=== PATIENT | male | born 1945 | race Caucasian/White ===

== ENCOUNTER 2017-08-26 23:01 | Inpatient (IN) | payer OTHER, MEDICARE ==
[2017-08-26 23:21] VITALS: BMI 27.1
[2017-08-27] MEDS ORDERED: ZOFRAN INJ 4 MG VIAL IVP ONE (00:45)
[2017-08-27] MEDS ORDERED: NS 1000 ML 1,000 ML IV ONE (00:46)
[2017-08-27] MEDS ORDERED: ZOFRAN INJ 4 MG VIAL ONE (00:46)
[2017-08-27] MEDS ORDERED: NS 1000 ML 1,000 ML ONE ×2 (00:46→02:08)
--- NOTE | 2017-08-27 00:49 | DR.GENAD ---
HPI - PCP Primary Care Physician: kimi - Complaint/Symptoms Chief Complaint Doctors Comments: Patient is complaining of nausea, vomiting and diarrhea for the past two days getting worst today. States he has lost six pounds since last night. He deneis fever, chills. cold, or cough. States he had a temp of 100 yesterday and he is a patient of Dr. Mckeon and has Chrons disease. He denies hematuria or linette. states he has been having hypogastric pain with decrease appetite. States he has been eating peaches today and drinking gatoraide. Family states he has been weak but has not falling. He denies chest pain or SOB. Chief Complaint:: n/v/d Self Treatment fo Chief Complaint: PHENERGAN TAKEN ONE HOUR AGO - Nurses notes reviewed Nurses Notes Review: Yes - Source History Provided: Patient - Mode of Arrival Mode of Arrival: Ambulatory - Timing Onset of Chief Complaint: 08/24/17 Came on: Gradually - Duration Duration: Constant How lon Duration: Days - Location Location: mid abdominal pain - Severity Severity: Moderate - Modifying Factors Worsens:: nothing Improves:: nothing PMH - PMH Past Medical History: Yes Past Medical History: Hypertension Past Medical History Comment: CHRONES DISEASE Past Surgical History: Yes Surgical History: Abdominal Surgery, Appendectomy, CABG/Valve Surgery, Cholecystectomy, Tonsillectomy Past Surgical History Comment: ILLIECTOMY - Family History History of Family Medical Conditions: Yes Family Medical History: [place], Coronary Artery Disease - Social History Does patient currently use any type of tobacco product: No Have you used tobacco products in the last 12 months: No Type of Tobacco Use: None Does any household member use tobacco: No Alcohol Use: None Do you use any recreational Drugs:: No Lives With: Family Lives Where: Home - infectious screening In the last 2 months have you had wt loss of >10#?: NO Have you had fever, night sweats or hemotysis?: No Have you traveled outside the country in the last 6 months?: No Isolation: Standard ROS - Review of Systems Constitutional: No Symptoms Reported, Fever, Malaise, Weakness, Loss of Appetite. negative: See HPI, Chills, Diaphoresis, Irritable, Fatigue, Other Eyes: No Symptoms Reported. negative: See HPI, Eye Pain, Blurred Vision, Tearing, Discharge, Photophobia, Diplopia, Other ENTM: No Symptoms Reported. negative: See HPI, Ear Pain, Ear Discharge, Pulling on Ears, Hearing Loss, Nose Pain, Nose Discharge, Epistaxis, Nose Congestion, Mouth Pain, Mouth Swelling, Loose Teeth, Drooling, Throat Pain, Throat Swelling, Ear Foreign Body Respiratoy: No Symptoms Reported. negative: See HPI, Productive Cough, Non- Productive Cough, Moist Cough, Dry Cough, Hacking Cough, Barking Cough, Brassy Cough, Orthopnea, Short of Breath, Stridor, Wheezing, Hemoptysis, Other Cardiovascular: No Symptoms Reported. negative: See HPI, Chest Pain, Edema, Palpitations, Syncope, Cyanosis, Skin Mottling, Other Gastrointestinal/Abdominal: No Symptoms Reported, Abdominal Pain, Diarrhea, Nausea, Vomiting. negative: See HPI, Constipation, Food Intolerance, Other Genitourinary: No Symptoms Reported. negative: See HPI, Discharge, Dysuria, Frequency, Hematuria, Pain, Bleeding, Other Neurological: No Symptoms Reported. negative: See HPI, Anxiety, Depressed, Emotional Problems, Headache, Numbness, Paresthesia, Pre-existing Deficit, Seizure, Tingling, Tremors, Weakness, Dizziness, Problems Walking, Speech Problem, Other Musculoskeletal: No Symptoms Reported Integumentary: No Symptoms Reported. negative: See HPI, Change in Color, Change in Hair/Nails, Dryness, Lesions, Lumps, Rash, Itching, Wound, Bruises, Juandice, Other Hematologic/Lymphatic: No Symptoms Reported Endocrine: No Symptoms Reported. negative: See HPI, Excessive Sweating, Flushing, Intolerance to Cold, Intolerance to Heat, Increased Hunger, Increased Thirst, Increased Urine, Unexplained Weight Gain, Unexplained Weight Loss, Failure to Thrive, Decreased Appetite, Other Psychiatric: No Symptoms Reported. negative: See HPI, Anxiety, Depression, Hallucinations, Excessive crying, Suicidal, Other PE - Vital Signs Vitals: Temperature 97.5 F Pulse Rate 82 Respiratory Rate 18 Blood Pressure [Right Arm] 133/70 Blood Pressure 103/7 O2 Sat by Pulse Oximetry 97 - General Limitations: No Limitations General Appearance: Alert, In Distress (mild) - Head Head Exam: Normal Inspection, Atraumatic, Normocephalic - Eyes Eye exam: Normal Appearance, PERRL, EOMI. negative: Scleral Icterus, Conjunctival Injection, Nystagmus, Miosis, Mydrasis, Periorbital Swelling, Periorbital Tenderness, Other - ENT ENT Exam: Normal Exam, Normal Oropharynx, Normal External Ear Exam, Mucous Membranes Moist, TM's Normal Bilaterally External Ear Exam: Normal External Inspection TM/Canal Exam: Bilateral Normal Nose Exam: Normal Nose Exam Mouth Exam: Normal Inspection. negative: Drooling, Trismus, Lip Swelling, Tongue Elevation, Tongue Swelling, Laceration, Other Throat Exam: Normal Inspection. negative: Tonsillar Erythema, Tonsillomegaly, Tonsillar Exudate, R Peritonsillar Mass, L Peritonsillar Mass, Muffled Voice, Other - Neck Neck Exam: Normal Inspection, Full ROM, Trachea Midline - Chest Chest Inspection: Normal Inspection, Symmetric Chest Wall Rise - Respiratory Respiratory Exam: Normal Lung Sounds Bilat. negative: Accessory Muscle Use, Chest Wall Tenderness, Prolonged Expiratory Phase, Respiratory Distress, Stridor , Other Respiratory Exam: Bilateral Clear to Auscultation - Cardiovascular Cardiovascular Exam: Regular Rate, Normal Rhythm, Bradycardia, Normal Heart Sounds - Abdominal Exam Abdominal Exam: Normal Inspection, Normal Bowel Sounds, Soft. negative: Distention, Tenderness, Guarding, Rebound, Rigidity, Dimnished Bowel Sounds, Hyperactive Bowel Sounds, Hypoactive Bowel Sounds, Organomegaly, Trauma, Incision, Ascites, Mass, Bruit, Pulsatile Mass, Hernia, Other Abdominal Tenderness: negative: RUQ, RLQ, LUQ, LLQ, Epigastrium, Suprapubic, Diffuse, Mild, Moderate, Severe, Other - Extremities Extremities Exam: Normal Inspection, Full ROM, Normal Capillary Refill. negative: Tenderness, Edema, Joint Swelling, Calf Tenderness, Other - Back Back Exam: Normal Inspection, Full ROM, Tenderness. negative: (R) CVA Tenderness, (L) CVA Tenderness, Muscle Spasm, Paraspinal Tenderness, Vertebral Tenderness, Rashes, (R) Sciatic Notch Tenderness, (L) Sciatic Notch Tendern, (R ) Straight Leg Raise, (L) Straight Leg Raise, Other - Neurologic Neurological Exam: Alert, Oriented X3, CN II-XII Intact, Normal Gait, Reflexes Normal - Psychiatric Psychiatric Exam: Normal Affect, Normal Mood - Skin Skin Exam: Warm, Dry, Intact, Normal Color Course - Consultation Called: 02:13 - Education/Counseling Education/Counseling: Patient, Family Educated On: Treatment, Diagnosis, Needs for Follow Up ROR - Labs Reviewed Laboratory Results Reviewed?: Yes (All labs and x-ray results reviewed and discussed with patient and family) Result Diagrams: 08/27/17 01:00 08/27/17 01:00 Laboratory: WBC 6.0 X10^3/uL (3.6-10.0) 08/27/17 01:00 RBC 5.26 X10^6/uL (4.7-6.0) 08/27/17 01:00 Hgb 18.3 g/dL (13.5-18.0) H 08/27/17 01:00 Hct 52.2 % (42.0-54.0) 08/27/17 01:00 MCV 99.1 fL (80.0-100.0) 08/27/17 01:00 MCH 34.7 pg (27.0-34.0) H 08/27/17 01:00 MCHC 35.0 g/dL (33.0-35.0) 08/27/17 01:00 RDW 13.9 % (11.6-16.5) 08/27/17 01:00 Plt Count 248 X10^3/uL (150.0-450.0) 08/27/17 01:00 MPV 8.5 fL (7.4-11.0) 08/27/17 01:00 Neut % (Auto) 73.8 % (42.0-75.0) 08/27/17 01:00 Lymph % (Auto) 7.3 % (21.0-51.0) L 08/27/17 01:00 [place] % (Auto) 18.7 % (0.0-13.0) H 08/27/17 01:00 Eos % (Auto) 0.0 % (0.9-2.9) L 08/27/17 01:00 Baso % (Auto) 0.2 % (0.2-1.0) 08/27/17 01:00 Neut # (Auto) 4.4 x10^3/uL (2.2-4.8) 08/27/17 01:00 Lymph # (Auto) 0.4 X10^3/uL (1.3-2.9) L 08/27/17 01:00 [place] # (Auto) 1.1 x10^3/uL (0.3-0.8) H 08/27/17 01:00 Eos # (Auto) 0.0 x10^3/uL (0.0-0.2) 08/27/17 01:00 Baso # (Auto) 0.0 X10^3/uL (0.0-0.1) 08/27/17 01:00 Absolute Nucleated RBC 0.2 /100WBC 08/27/17 01:00 Sodium 136 mmol/L (136-145) 08/27/17 01:00 Corrected Sodium 138 mmol/L (136-145) 08/27/17 01:00 Potassium 3.6 mmol/L (3.5-5.1) 08/27/17 01:00 Chloride 98 mmol/L (98-107) 08/27/17 01:00 Carbon Dioxide 20.6 mmol/L (21-32) L 08/27/17 01:00 BUN 32 mg/dL (7-18) H 08/27/17 01:00 Creatinine 3.26 mg/dL (0.70-1.30) H 08/27/17 01:00 Est GFR (MDRD) Af Amer 24 (>60) L 08/27/17 01:00 Est GFR (MDRD) Non-Af 20 (>60) L 08/27/17 01:00 Glucose 179 mg/dL (65-99) H 08/27/17 01:00 Calcium 9.5 mg/dL (8.5-10.1) 08/27/17 01:00 Corrected Calcium TNP 08/27/17 01:00 Total Bilirubin 0.70 mg/dL (0.2-1.0) 08/27/17 01:00 AST 37 Units/L (15-37) 08/27/17 01:00 ALT 62 Units/L (12-78) 08/27/17 01:00 Alkaline Phosphatase 69 Units/L (46-116) 08/27/17 01:00 Total Protein 9.1 g/dL (6.4-8.2) H 08/27/17 01:00 Albumin 4.4 g/dL (3.4-5.0) 08/27/17 01:00 Globulin 4.7 g/dL (2.5-4.5) H 08/27/17 01:00 Albumin/Globulin Ratio 0.9 Ratio (1.1-2.1) L 08/27/17 01:00 Amylase 55 Units/L (25-115) 08/27/17 01:00 Lipase 171 Units/L (73-393) 08/27/17 01:00 - XRAY XRAY Interpreted by: Radiologist (CT abdomen and pelvis: Moderate diffuse fluid and gaseous distention of the stomach and entire smallbowel to distal ileum with mod narrowing. Nonobstructing right nephrolithiasis) - Diagnosis Discharge Problem: Gastroenteritis, Dehydration, moderate, Hyperglycemia, Diverticulosis of colon , Crohn's disease, Nephrolithiasis Acute renal failure (ARF) Qualifiers: Acute renal failure type: unspecified Qualified Code(s): N17.9 - Acute kidney failure, unspecified - Discharge Plan Disposition: ADMITTED INPATIENT Condition: Stable - Follow ups/Referrals Follow ups/Referrals: MARELY GARCÍA [Primary Care Provider] - 3 days - Instructions
[2017-08-27 01:21] LABS: BASOPHILS % (AUTO) 0.2 % (0.2-1.0); HEMATOCRIT 52.2 % (42.0-54.0); HEMOGLOBIN 18.3 g/dL (13.5-18.0); LYMPHOCYTES # (AUTO) 0.4 X10^3/uL (1.3-2.9); LYMPHOCYTES % (AUTO) 7.3 % (21.0-51.0); MEAN CORPUSCULAR HEMOGLOBIN 34.7 pg (27.0-34.0); MEAN CORPUSCULAR VOLUME 99.1 fL (80.0-100.0); MEAN PLATELET VOLUME 8.5 fL (7.4-11.0); MONOCYTES # (AUTO) 1.1 x10^3/uL (0.3-0.8); MONOCYTES % (AUTO) 18.7 % (0.0-13.0); NEUTROPHILS # (AUTO) 4.4 x10^3/uL (2.2-4.8); NEUTROPHILS % (AUTO) 73.8 % (42.0-75.0); PLATELET COUNT 248 X10^3/uL (150.0-450.0); RED BLOOD COUNT 5.26 X10^6/uL (4.7-6.0); RED CELL DISTRIBUTION WIDTH 13.9 % (11.6-16.5)
[2017-08-27 01:26] LABS: ALANINE AMINOTRANSFERASE 62 Units/L (12-78); ALBUMIN 4.4 g/dL (3.4-5.0); ALKALINE PHOSPHATASE 69 Units/L (46-116); AMYLASE 55 Units/L (25-115); ASPARTATE AMINO TRANSFERASE 37 Units/L (15-37); BLOOD UREA NITROGEN 32 mg/dL (7-18); CALCIUM 9.5 mg/dL (8.5-10.1); CARBON DIOXIDE 20.6 mmol/L (21-32); CHLORIDE 98 mmol/L (98-107); COR NA(FOR HYPERGLY) 138 mmol/L (136-145); CREATININE 3.26 mg/dL (0.70-1.30); LIPASE 171 Units/L (73-393); SODIUM 136 mmol/L (136-145); TOTAL PROTEIN 9.1 g/dL (6.4-8.2); eGFR BLACK RACES 24 (>60); eGFR NON BLACK RACES 20 (>60)
--- NOTE | 2017-08-27 01:26 | CT ---
CT abdomen and pelvis without contrast Indication: Nausea, vomiting, diarrhea Technique: Helical CT images of the abdomen and pelvis were obtained without IV contrast. Reformatted images in the coronal and sagittal planes were also generated for review. Comparison: 10/24/2012 Findings: Lung bases are clear. No aggressive osseous lesions are identified. The gallbladder is surgically absent. Within the limits of a noncontrast exam, the unenhanced liver, spleen, pancreas, adrenals and left kidney are unremarkable. A few nonobstructing right renal stones are present, the largest measuring 4-5 mm within the right upper pole. No additional radiopaque urina ry tract stones are identified and there is no left or right hydroureteronephrosis. Evaluation of the GI tract is limited without intravenous or enteric contrast. Given these limitation s, the stomach is moderately distended with fluid and gas. There is also diffuse fluid and gaseous di stention of the entire small bowel, which measures up to 4.2 cm in diameter. Again seen is moderate n arrowing of the distal ileum, which could represent chronic stricture with resultant functional obstr uction. Mild colonic diverticulosis is noted without CT evidence of acute diverticulitis. The colon a nd rectum are relatively collapsed but otherwise normal. There is moderate calcification of the abdominal aorta without aneurysm. The urinary bladder is colla psed, limiting evaluation. The prostate is normal in size. No free air, free fluid or bulky lymphaden opathy is identified. Impression: Moderate diffuse fluid and gaseous distention of the stomach as well as entire small bowel to the lev el of the distal ileum, which again appears moderately narrowed. Findings appear overall unchanged w hen compared to prior exam and again could represent chronic distal ileal stricture with resultant fu nctional obstruction. Correlation recommended. Nonobstructing right nephrolithiasis and additional findings, as above. Reported By:
[2017-08-27] MEDS ORDERED: REGLAN INJ 10 MG VIAL IVP STA (02:07)
[2017-08-27] MEDS ORDERED: MORPHINE SULFATE INJ 2 MG INJ IVP PRN (02:21)
[2017-08-27] MEDS ORDERED: PEPCID 20 MG IV PREMIX* 20 MG/50 ML BAG IV PRN (02:21)
[2017-08-27] MEDS ORDERED: PERCOCET TAB 5/325 MG PO PRN (02:21)
[2017-08-27] MEDS ORDERED: REGLAN INJ 10 MG VIAL ONE (02:49)
[2017-08-27] MEDS: ZOFRAN INJ 4 MG VIAL IVP PRN ×2 (03:24→10:22)
[2017-08-27] MEDS: NS 1/2 1000 ML IV 1,000 ML IV SCH ×4 (03:24→20:07)
[2017-08-27] MEDS ORDERED: NS 1/2 1000 ML IV 1,000 ML IV ONE ×3 (03:26→18:56)
[2017-08-27 04:40] LABS: BILIRUBIN,URINE 2+ (NEGATIVE); BLOOD/HEMOGLOBIN,URINE 1+ (NEGATIVE); GLUCOSE, URINE NEGATIVE (NEGATIVE); KETONES,URINE NEGATIVE (NEGATIVE); LEUKOCYTE ESTERASE ,URINE 1+ (NEGATIVE); NITRITES,URINE NEGATIVE (NEGATIVE); PROTEIN,URINE 3+ (NEGATIVE); UROBILINOGEN,URINE NORMAL (NORMAL)
[2017-08-27 05:04] LABS: APPEARANCE,URINE CLOUDY (CLEAR); BACTERIA,URINE 2+ /HPF (NEGATIVE); COLOR,URINE YELLOW (YELLOW); SQUAMOUS EPITHELIAL CELL,UR FEW /HPF (NEGATIVE)
[2017-08-27 05:05] LABS: CALCIUM OXALATE CRYSTALS,UR FEW /HPF (NEGATIVE); GRANULAR CASTS,URINE FEW /LPF (NEGATIVE); HYALINE CASTS, URINE MODERATE /LPF (NEGATIVE)
[2017-08-27 06:11] LABS: CALCIUM 8.7 mg/dL (8.5-10.1); CARBON DIOXIDE 17.9 mmol/L (21-32); CREATININE 3.13 mg/dL (0.70-1.30)
[2017-08-27] MEDS ORDERED: PHENERGAN INJ 25 MG IV PRN (06:17)
[2017-08-27 06:52] LABS: BASOPHILS % (AUTO) 0.2 % (0.2-1.0); EOSINOPHILS % (AUTO) 0.1 % (0.9-2.9); HEMATOCRIT 49.1 % (42.0-54.0); HEMOGLOBIN 17.4 g/dL (13.5-18.0); LYMPHOCYTES # (AUTO) 0.3 X10^3/uL (1.3-2.9); LYMPHOCYTES % (AUTO) 6.5 % (21.0-51.0); MEAN CORPUSCULAR HEMOGLOBIN 35.1 pg (27.0-34.0); MEAN CORPUSCULAR HGB CONC 35.3 g/dL (33.0-35.0); MEAN CORPUSCULAR VOLUME 99.4 fL (80.0-100.0); MEAN PLATELET VOLUME 8.6 fL (7.4-11.0); MONOCYTES # (AUTO) 0.9 x10^3/uL (0.3-0.8); MONOCYTES % (AUTO) 18.1 % (0.0-13.0); NEUTROPHILS # (AUTO) 3.8 x10^3/uL (2.2-4.8); NEUTROPHILS % (AUTO) 75.1 % (42.0-75.0); PLATELET COUNT 216 X10^3/uL (150.0-450.0); RED BLOOD COUNT 4.94 X10^6/uL (4.7-6.0); RED CELL DISTRIBUTION WIDTH 13.9 % (11.6-16.5)
[2017-08-27 10:54] LABS: STOOL FOR WBC POSITIVE (NEGATIVE)
[2017-08-27] MEDS: LIPITOR TAB 10 MG PO SCH (20:27)
[2017-08-28] MEDS ORDERED: NS 1/2 1000 ML IV 1,000 ML IV ONE ×2 (02:39→18:24)
[2017-08-28] MEDS: NS 1/2 1000 ML IV 1,000 ML IV SCH ×2 (03:00→18:26)
[2017-08-28 06:44] LABS: ALANINE AMINOTRANSFERASE 41 Units/L (12-78); ALBUMIN 3.7 g/dL (3.4-5.0); ALKALINE PHOSPHATASE 56 Units/L (46-116); ASPARTATE AMINO TRANSFERASE 21 Units/L (15-37); BLOOD UREA NITROGEN 64 mg/dL (7-18); CALCIUM 8.1 mg/dL (8.5-10.1); CHLORIDE 98 mmol/L (98-107); COR NA(FOR HYPERGLY) 134 mmol/L (136-145); CREATININE 4.62 mg/dL (0.70-1.30); SODIUM 133 mmol/L (136-145); TOTAL PROTEIN 8.1 g/dL (6.4-8.2); eGFR BLACK RACES 16 (>60); eGFR NON BLACK RACES 13 (>60)
[2017-08-28 06:46] LABS: BASOPHILS % (AUTO) 0.3 % (0.2-1.0); HEMOGLOBIN 17.4 g/dL (13.5-18.0); LYMPHOCYTES # (AUTO) 0.8 X10^3/uL (1.3-2.9); LYMPHOCYTES % (AUTO) 6.6 % (21.0-51.0); MEAN CORPUSCULAR HEMOGLOBIN 34.4 pg (27.0-34.0); MEAN CORPUSCULAR HGB CONC 35.6 g/dL (33.0-35.0); MEAN CORPUSCULAR VOLUME 96.5 fL (80.0-100.0); MEAN PLATELET VOLUME 8.4 fL (7.4-11.0); MONOCYTES # (AUTO) 2.4 x10^3/uL (0.3-0.8); MONOCYTES % (AUTO) 19.7 % (0.0-13.0); NEUTROPHILS # (AUTO) 8.8 x10^3/uL (2.2-4.8); NEUTROPHILS % (AUTO) 73.4 % (42.0-75.0); PLATELET COUNT 286 X10^3/uL (150.0-450.0); RED BLOOD COUNT 5.07 X10^6/uL (4.7-6.0); RED CELL DISTRIBUTION WIDTH 13.8 % (11.6-16.5)
[2017-08-28 06:48] LABS: CARBON DIOXIDE 12.7 mmol/L (21-32)
[2017-08-28] MEDS ORDERED: POTASSIUM CHLORIDE LIQ 20 MEQ UDC PO PRN (08:40)
[2017-08-28] MEDS ORDERED: K-LYTE EFFERVESCENT PO PRN (08:40)
[2017-08-28] MEDS ORDERED: POTASSIUM CHL 60 MEQ/NS 0.45% 500 ML IV PRN (08:40)
[2017-08-28] MEDS ORDERED: MAGNESIUM SULFATE 1 GM/100 mL PREMIX 1 GM/100 ML BAG IV PRN (08:40)
[2017-08-28] MEDS ORDERED: POTASSIUM CHL 40 MEQ/NS 0.45% 500 ML IV PRN (08:40)
[2017-08-28] MEDS ORDERED: K-RIDER 10 MEQ/NS 100 ML 10 MEQ/100 ML BAG IV PRN (08:40)
[2017-08-28] MEDS: ZESTRIL TAB 10 MG PO SCH (08:45)
[2017-08-28] MEDS: CARDIZEM CD 240 MG PO SCH (08:45)
[2017-08-28] MEDS: LIPITOR TAB 10 MG PO SCH (08:45)
[2017-08-28] MEDS: TENORMIN PO SCH (08:46)
[2017-08-28] MEDS: PEPCID 20 MG IV PREMIX* 20 MG/50 ML BAG IV SCH (08:48)
[2017-08-28] MEDS: PATIENT'S HOME MEDICATION PO SCH ×3 (08:50→21:01)
--- NOTE | 2017-08-28 10:04 | RAD ---
Chest, PA and lateral Indication: Diminished lung sounds Comparison: 10/23/2012 Findings: Changes of previous median sternotomy and CABG are noted. The heart size is normal. The jeannie gs are mildly hypoinflated, but clear without focal infiltrate or pleural effusion. Impression: No acute chest process. Reported By:
--- NOTE | 2017-08-28 13:28 | PCM.PROG ---
Progress Note - Progress Note for Day of Date: 08/28/17 - Subjective Subjective: 71 WM ADMITTED ON MONDAY WITH N/V/D AND ABDOMINAL PAIN. PT CO OF IMPROVED VOMITING AND CO SEVERE DIARRHEA AND ABDOMINAL CRAMPS. PT BUN/CREAT INCREASED THIS AM 64/4.62. CXR THIS AM, WILL REPEAT BMP THIS AFTERNOON. - Past Medical Family Social History Past Med/Fam/Surg Hx: No changes since H&P Allergies: Allergies lorazepam Allergy (Verified 08/27/17 00:23) Sulfa (Sulfonamide Antibiotics) [SULFA] Allergy (Verified 08/27/17 00:23) - Review of Systems ROS: No change since H&P - Vital Signs and I&O's Vital Signs: Temperature 98.1 F Pulse Rate [Left Brachial] 62 Pulse Rate [Left Radial] 61 Pulse Rate [Radial] 66 Pulse Rate 82 Respiratory Rate 20 Blood Pressure [Left Arm] 144/77 Blood Pressure [Right Arm] 162/91 Blood Pressure 103/57 O2 Sat by Pulse Oximetry 97 Intake and Output: Intake & Output 08/26/17 08/27/17 08/28/17 08/29/17 11:59 11:59 11:59 11:59 Intake Total 0 4432 Balance 0 4432 - Physical Exam Oriented: Normal Eyes: Normal Ear: Normal Nose: Normal Throat: Dry Respiratory: Normal Cardiovascular: Normal : Normal Auscultation: Bowel Sounds: Increased Palpation: Normal Tenderness: Diffuse Skin: Decreased Turgur Musculoskeletal: Normal Psychiatric: Anxiety Affect: Anxious Speech Pattern: Clear, Appropriate - Laboratory and Diagnostics Result Diagrams: 08/28/17 06:32 08/28/17 05:20 Labs: 08/27/17 09:55 Stool Stool Culture - Preliminary 08/27/17 09:55 Stool - Final 08/27/17 04:08 Urine,Clean Catch Urine Culture - Final Laboratory WBC 12.0 X10^3/uL (3.6-10.0) H 08/28/17 06:32 RBC 5.07 X10^6/uL (4.7-6.0) 08/28/17 06:32 Hgb 17.4 g/dL (13.5-18.0) 08/28/17 06:32 Hct 49.0 % (42.0-54.0) 08/28/17 06:32 MCV 96.5 fL (80.0-100.0) 08/28/17 06:32 MCH 34.4 pg (27.0-34.0) H 08/28/17 06:32 MCHC 35.6 g/dL (33.0-35.0) H 08/28/17 06:32 RDW 13.8 % (11.6-16.5) 08/28/17 06:32 Plt Count 286 X10^3/uL (150.0-450.0) 08/28/17 06:32 MPV 8.4 fL (7.4-11.0) 08/28/17 06:32 Neut % (Auto) 73.4 % (42.0-75.0) 08/28/17 06:32 Lymph % (Auto) 6.6 % (21.0-51.0) L 08/28/17 06:32 [place] % (Auto) 19.7 % (0.0-13.0) H 08/28/17 06:32 Eos % (Auto) 0.0 % (0.9-2.9) L 08/28/17 06:32 Baso % (Auto) 0.3 % (0.2-1.0) 08/28/17 06:32 Neut # (Auto) 8.8 x10^3/uL (2.2-4.8) H 08/28/17 06:32 Lymph # (Auto) 0.8 X10^3/uL (1.3-2.9) L 08/28/17 06:32 [place] # (Auto) 2.4 x10^3/uL (0.3-0.8) H 08/28/17 06:32 Eos # (Auto) 0.0 x10^3/uL (0.0-0.2) 08/28/17 06:32 Baso # (Auto) 0.0 X10^3/uL (0.0-0.1) 08/28/17 06:32 Absolute Nucleated RBC 0.1 /100WBC 08/28/17 06:32 Sodium 133 mmol/L (136-145) L 08/28/17 05:20 Corrected Sodium 134 mmol/L (136-145) L 08/28/17 05:20 Potassium 2.7 mmol/L (3.5-5.1) L* 08/28/17 05:20 Chloride 98 mmol/L (98-107) 08/28/17 05:20 Carbon Dioxide 12.7 mmol/L (21-32) L* 08/28/17 05:20 BUN 64 mg/dL (7-18) H 08/28/17 05:20 Creatinine 4.62 mg/dL (0.70-1.30) H 08/28/17 05:20 Est GFR (MDRD) Af Amer 16 (>60) L 08/28/17 05:20 Est GFR (MDRD) Non-Af 13 (>60) L 08/28/17 05:20 Glucose 141 mg/dL (65-99) H 08/28/17 05:20 Calcium 8.1 mg/dL (8.5-10.1) L 08/28/17 05:20 Corrected Calcium TNP 08/28/17 05:20 Magnesium 1.9 mg/dL (1.7-2.9) 08/28/17 05:20 Total Bilirubin 0.50 mg/dL (0.2-1.0) 08/28/17 05:20 AST 21 Units/L (15-37) 08/28/17 05:20 ALT 41 Units/L (12-78) 08/28/17 05:20 Alkaline Phosphatase 56 Units/L (46-116) 08/28/17 05:20 Total Protein 8.1 g/dL (6.4-8.2) 08/28/17 05:20 Albumin 3.7 g/dL (3.4-5.0) 08/28/17 05:20 Globulin 4.4 g/dL (2.5-4.5) 08/28/17 05:20 Albumin/Globulin Ratio 0.8 Ratio (1.1-2.1) L 08/28/17 05:20 Amylase 55 Units/L (25-115) 08/27/17 01:00 Lipase 171 Units/L (73-393) 08/27/17 01:00 Specimen Type Clean catch urine 08/27/17 04:08 Urine Color Yellow (YELLOW) 08/27/17 04:08 Urine Appearance Cloudy (CLEAR) 08/27/17 04:08 Urine pH 5.0 (5.0 - 8.0) 08/27/17 04:08 Ur Specific Padroni 1.030 (1.000-1.030) 08/27/17 04:08 Urine Protein 3+ (NEGATIVE) 08/27/17 04:08 Urine Glucose (UA) Negative (NEGATIVE) 08/27/17 04:08 Urine Ketones Negative (NEGATIVE) 08/27/17 04:08 Urine Occult Blood 1+ (NEGATIVE) 08/27/17 04:08 Urine Nitrite Negative (NEGATIVE) 08/27/17 04:08 Urine Bilirubin 2+ (NEGATIVE) 08/27/17 04:08 Urine Urobilinogen Normal (NORMAL) 08/27/17 04:08 Ur Leukocyte Esterase 1+ (NEGATIVE) 08/27/17 04:08 Urine RBC 5-10 /HPF (NONE SEEN) 08/27/17 04:08 Urine WBC 5-10 /HPF (NONE SEEN) 08/27/17 04:08 Ur Squamous Epith Cells Few /HPF (NEGATIVE) 08/27/17 04:08 Calcium Oxalate Crystal Few /HPF (NEGATIVE) 08/27/17 04:08 Urine Bacteria 2+ /HPF (NEGATIVE) 08/27/17 04:08 Hyaline Casts Moderate /LPF (NEGATIVE) 08/27/17 04:08 Granular Casts Few /LPF (NEGATIVE) 08/27/17 04:08 Ur Culture Indicated? Yes/culture set up 08/27/17 04:08 Stool Description Watery, green, 180gr 08/27/17 09:55 Stl Occult Blood (IFOB) Negative (NEGATIVE) 08/27/17 09:55 Stool for White Cells Positive (NEGATIVE) A 08/27/17 09:55 Stl C. diff Tox B Gene Negative (NEGATIVE) 08/27/17 09:55 Stl C. diff [id number] Negative (NEGATIVE) 08/27/17 09:55 - Plan (1) Gastroenteritis Status: Acute Plan: CONTINUE IV HYDRATION. POTASSIUM REPLACEMENT, STOOL CULTURES PENDING. ENCOURAGE ORAL HYDRATION, PAIN AND NAUSEA CONTROL (2) Acute renal failure (ARF) Status: Acute Qualifiers: Acute renal failure type: unspecified Qualified Code(s): N17.9 - Acute kidney failure, unspecified Plan: REPEAT BMP THIS AFTERNOON, GENTLY HYDRATION. I & OS (3) Crohn's disease Status: Acute (4) Dehydration, moderate Status: Acute (5) Diverticulosis of colon Status: Acute (6) Essential hypertension Status: Active (7) Generalized anxiety disorder Status: Active
[2017-08-28 15:54] LABS: CALCIUM 7.6 mg/dL (8.5-10.1); CREATININE 4.85 mg/dL (0.70-1.30)
[2017-08-28 15:56] LABS: CARBON DIOXIDE 8.5 mmol/L (21-32)
[2017-08-29] MEDS ORDERED: NS 1/2 1000 ML IV 1,000 ML IV ONE ×2 (00:37→08:22)
[2017-08-29] MEDS: NS 1/2 1000 ML IV 1,000 ML IV SCH (00:40)
[2017-08-29 06:33] LABS: ALANINE AMINOTRANSFERASE 32 Units/L (12-78); ALBUMIN 3.3 g/dL (3.4-5.0); ALKALINE PHOSPHATASE 55 Units/L (46-116); ASPARTATE AMINO TRANSFERASE 18 Units/L (15-37); BLOOD UREA NITROGEN 78 mg/dL (7-18); CALCIUM 7.7 mg/dL (8.5-10.1); CHLORIDE 100 mmol/L (98-107); COR CA(FOR HYPOALB) 8.3 mg/dL (8.5-10.1); CREATININE 3.46 mg/dL (0.70-1.30); SODIUM 130 mmol/L (136-145); TOTAL PROTEIN 7.4 g/dL (6.4-8.2); eGFR BLACK RACES 23 (>60); eGFR NON BLACK RACES 19 (>60)
[2017-08-29 06:40] LABS: CARBON DIOXIDE 8.7 mmol/L (21-32)
[2017-08-29 06:48] LABS: BASOPHILS % (AUTO) 0.3 % (0.2-1.0); HEMATOCRIT 46.3 % (42.0-54.0); HEMOGLOBIN 16.6 g/dL (13.5-18.0); LYMPHOCYTES # (AUTO) 0.8 X10^3/uL (1.3-2.9); LYMPHOCYTES % (AUTO) 8.5 % (21.0-51.0); MEAN CORPUSCULAR HGB CONC 35.9 g/dL (33.0-35.0); MEAN CORPUSCULAR VOLUME 97.3 fL (80.0-100.0); MEAN PLATELET VOLUME 8.4 fL (7.4-11.0); MONOCYTES # (AUTO) 2.2 x10^3/uL (0.3-0.8); MONOCYTES % (AUTO) 22.4 % (0.0-13.0); NEUTROPHILS # (AUTO) 6.9 x10^3/uL (2.2-4.8); NEUTROPHILS % (AUTO) 68.8 % (42.0-75.0); PLATELET COUNT 245 X10^3/uL (150.0-450.0); RED BLOOD COUNT 4.76 X10^6/uL (4.7-6.0); RED CELL DISTRIBUTION WIDTH 13.9 % (11.6-16.5)
[2017-08-29 07:03] LABS: BAND NEUTROPHILS % 19 % (0-10); PLATELET MORPHOLOGY COMMENT NORMAL (NORMAL)
[2017-08-29] MEDS: TENORMIN PO SCH (08:29)
[2017-08-29] MEDS: ZESTRIL TAB 10 MG PO SCH (08:29)
[2017-08-29] MEDS: LIPITOR TAB 10 MG PO SCH (08:29)
[2017-08-29] MEDS: PEPCID 20 MG IV PREMIX* 20 MG/50 ML BAG IV SCH (08:29)
[2017-08-29] MEDS: CARDIZEM CD 240 MG PO SCH (08:29)
[2017-08-29] MEDS: XANAX PO PRN (08:54)
[2017-08-29] MEDS: PATIENT'S HOME MEDICATION PO SCH ×3 (08:55→21:33)
[2017-08-29] MEDS: FLAGYL IV PREMIX 500 MG BAG 500 MG/100 ML BAG IV SCH ×2 (09:37→14:40)
[2017-08-29] MEDS: NS + KCL 20 MEQ/L 1,000 ML IV SCH ×2 (09:37→21:32)
--- NOTE | 2017-08-29 14:08 | RAD ---
HISTORY: Abdominal pain Study: Flat and upright abdomen, AP chest Comparison: CT abdomen pelvis 08/27/2017 Findings: There are multiple dilated loops of small bowel in the left upper quadrant demonstrating air-fluid le vels on the upright film. There is gas distally within the colon. Findings are suspicious for at leas t a partial small bowel obstruction. No pneumoperitoneum is identified. No abnormal masses are identi fied. There is a small calcification overlying the right kidney likely right renal calculus. The ches t is clear. IMPRESSION: Findings suspicious for at least a partial small bowel obstruction 5 mm right renal calculus Reported By:
--- NOTE | 2017-08-29 15:35 | DR.CONSULT ---
Consult - Consultation for Day of: Date: 08/29/17 - Chief Complaint Chief Complaint: Patient referred for gastroenteritis, dehydration, nausea, vomiting, diarrhea and renal failure. Patient with complaints of nausea, vomiting and diarrhea. - Allergies Allergies/Adverse Reactions: Allergies Allergy/AdvReac Type Severity Reaction Status Date / Time lorazepam Allergy Verified 08/27/17 00:23 Sulfa (Sulfonamide Allergy Verified 08/27/17 00:23 Antibiotics) [SULFA] - History of Present Illness History of Present Illness: Patient is a 72yo male who was referred for gastroenteritis, dehydration, nausea, vomiting, diarrhea and renal failure. Patient with complaints of nausea, vomiting and diarrhea that started on . Patient states that his diarrhea is slowing down some. He denies dysphagia, dyspepsia, abdominal pain, constipation, melena or hematochezia. Stool Studies are negative with the exception of positive for WBC. Patient has a history of Chrons disease for which he is on purinethol for. Last colonoscopy was 01/07/2016 which showed surgical changed consistent with previous ileocectomy anastomotic site with stricture baloon dilation performed, normal terminal ileum. Last EGD was 07/13/1998 which showed mild distal esophagitis, mild antral gastritis, mildly dilated distal ileum. Abdomen and pelvis ct without contrast showed moderate diffuse fluid and gaseous distention of the stomach as well as the entire small bowel to the level o fthe distal ileum, which again appears moderately narrowed, findings are overall unchanged when compared to prior exam and again could represent chronic distal ileum stricture with resultant functional obstruction. - Past Medical History Past Medical History: Hypertension Additional Medical History: Chrons - Past Surgical History Surgical History: Abdominal Surgery, Appendectomy, CABG/Valve Surgery, Cholecystectomy, Tonsillectomy - Family History Family Medical History: [place], Coronary Artery Disease - Social History Does patient currently use any type of tobacco product: No Have you used tobacco products in the last 12 months: No Type of Tobacco Use: None Does any household member use tobacco: No Alcohol Use: None Drug Use: None - Medications Home Medications: Desvenlafaxine Succinate [Pristiq] 100 mg PO DAILY 08/27/17 [History Confirmed 08/27/17] - Review of Systems Constitutional: No Symptoms Reported Eyes: No Symptoms Reported ENT: No Symptoms Reported Respiratory: No Symptoms Reported Cardiovascular: No Symptoms Reported Gastrointestinal: Nausea, Vomiting, Diarrhea Genitourinary: No Symptoms Reported Musculoskeletal: No Symptoms Reported Skin: No Symptoms Reported Neurological: No Symptoms Reported - Physical Exam Vital Signs: Temperature 97.6 F Pulse Rate [Left Brachial] 58 Pulse Rate [Left Radial] 61 Pulse Rate [Radial] 66 Pulse Rate 82 Respiratory Rate 20 Blood Pressure [Left Arm] 150/69 Blood Pressure [Right Arm] 162/91 Blood Pressure 103/57 O2 Sat by Pulse Oximetry 97 Oriented: Normal Eyes: Normal Ear: Normal Nose: Normal Throat: Normal Respiratory: Clear Throughout Cardiovascular: Normal : Normal Auscultation: Bowel Sounds: Normal Palpation: Normal, Other (no distention). negative: Spleen Enlarged, Liver Enlarged, Mass Pulsatile Tenderness: Normal Skin: Normal Musculoskeletal: Normal Psychiatric: Normal Mood Description: Calm Affect: Normal Speech Pattern: Clear - Plan Plan: Assessment. 1. Nausea, vomiting, diarrhea likely viral gastroenteritis, chrons disease exacerbation possible but less likely. 2. Chrons Disease. 3. Abnormal Ct imaging changes are chronic and not new. Plan. 1. Iv Antibiotics Cipro 200mg IV Q12hr, Flagyl 250mg IV Q8hr. 2. Cont Purinethol. 3. Recommend nephrology consult for renal failre, may need transfer for nephrology evaluation. Plan reviewed with Dr. Lau
[2017-08-29 16:13] LABS: BLOOD UREA NITROGEN 74 mg/dL (7-18); CHLORIDE 102 mmol/L (98-107); CREATININE 2.89 mg/dL (0.70-1.30); SODIUM 132 mmol/L (136-145); eGFR BLACK RACES 28 (>60); eGFR NON BLACK RACES 23 (>60)
[2017-08-29 16:17] LABS: CARBON DIOXIDE 9.9 mmol/L (21-32)
--- NOTE | 2017-08-29 16:45 | PCM.PROG ---
Progress Note - Progress Note for Day of Date: 08/29/17 - Subjective Subjective: 71 WM ADMITTED ON MONDAY WITH N/V/D AND ABDOMINAL PAIN. PT CO OF IMPROVED VOMITING AND CO SEVERE DIARRHEA AND ABDOMINAL CRAMPS, WITH MILD IMPROVEMENT IN RENAL FUNCTION. PT HAS HX OF CROHNS DISEASE AND IS FOLLOWED BY DR WARD, PT AND FAMILY REQUESTED TO CONSULT HIM WHILE INPT. - Past Medical Family Social History Past Med/Fam/Surg Hx: No changes since H&P Allergies: Allergies lorazepam Allergy (Verified 08/27/17 00:23) Sulfa (Sulfonamide Antibiotics) [SULFA] Allergy (Verified 08/27/17 00:23) - Review of Systems ROS: No change since H&P - Vital Signs and I&O's Vital Signs: Temperature 97.6 F Pulse Rate [Left Brachial] 58 Pulse Rate [Left Radial] 61 Pulse Rate [Radial] 66 Pulse Rate 82 Respiratory Rate 20 Blood Pressure [Left Arm] 150/69 Blood Pressure [Right Arm] 162/91 Blood Pressure 103/57 O2 Sat by Pulse Oximetry 97 Intake and Output: Intake & Output 08/27/17 08/28/17 08/29/17 08/30/17 11:59 11:59 11:59 11:59 Intake Total 0 4432 3370 480 Output Total 500 Balance 0 4432 3370 -20 - Physical Exam Oriented: Normal Eyes: Normal Ear: Normal Nose: Normal Throat: Normal Respiratory: Normal Cardiovascular: Normal : Normal Auscultation: Bowel Sounds: Normal Tenderness: Diffuse (MILD) Skin: Normal Musculoskeletal: Normal Psychiatric: Normal Mood Description: Calm Affect: Normal Speech Pattern: Clear - Laboratory and Diagnostics Result Diagrams: 08/29/17 05:22 08/29/17 13:25 Labs: 08/27/17 09:55 Stool Stool Culture - Preliminary 08/27/17 09:55 Stool - Final 08/27/17 04:08 Urine,Clean Catch Urine Culture - Final Laboratory WBC 10.0 X10^3/uL (3.6-10.0) 08/29/17 05:22 RBC 4.76 X10^6/uL (4.7-6.0) 08/29/17 05:22 Hgb 16.6 g/dL (13.5-18.0) 08/29/17 05:22 Hct 46.3 % (42.0-54.0) 08/29/17 05:22 MCV 97.3 fL (80.0-100.0) 08/29/17 05:22 MCH 35.0 pg (27.0-34.0) H 08/29/17 05:22 MCHC 35.9 g/dL (33.0-35.0) H 08/29/17 05:22 RDW 13.9 % (11.6-16.5) 08/29/17 05:22 Plt Count 245 X10^3/uL (150.0-450.0) 08/29/17 05:22 Plt Count Comment Adequate (ADEQUATE) 08/29/17 05:22 MPV 8.4 fL (7.4-11.0) 08/29/17 05:22 Neut % (Auto) 68.8 % (42.0-75.0) 08/29/17 05:22 Lymph % (Auto) 8.5 % (21.0-51.0) L 08/29/17 05:22 [place] % (Auto) 22.4 % (0.0-13.0) H 08/29/17 05:22 Eos % (Auto) 0.0 % (0.9-2.9) L 08/29/17 05:22 Baso % (Auto) 0.3 % (0.2-1.0) 08/29/17 05:22 Neut # (Auto) 6.9 x10^3/uL (2.2-4.8) H 08/29/17 05:22 Lymph # (Auto) 0.8 X10^3/uL (1.3-2.9) L 08/29/17 05:22 [place] # (Auto) 2.2 x10^3/uL (0.3-0.8) H 08/29/17 05:22 Eos # (Auto) 0.0 x10^3/uL (0.0-0.2) 08/29/17 05:22 Baso # (Auto) 0.0 X10^3/uL (0.0-0.1) 08/29/17 05:22 Absolute Nucleated RBC 0.1 /100WBC 08/29/17 05:22 Total Counted 100 08/29/17 05:22 Neutrophils % (Manual) 53 % (39-76) 08/29/17 05:22 Band Neutrophils % 19 % (0-10) H 08/29/17 05:22 Lymphocytes % (Manual) 9 % (13-43) L 08/29/17 05:22 Monocytes % (Manual) 18 % (4-9) H 08/29/17 05:22 Plt Morphology Comment Normal (NORMAL) 08/29/17 05:22 RBC Morphology Normal (NORMAL) 08/29/17 05:22 ESR 15 MM/HOUR (0-15) 08/29/17 13:25 Sodium 132 mmol/L (136-145) L 08/29/17 13:25 Corrected Sodium TNP 08/29/17 13:25 Potassium 3.2 mmol/L (3.5-5.1) L 08/29/17 13:25 Chloride 102 mmol/L (98-107) 08/29/17 13:25 Carbon Dioxide 9.9 mmol/L (21-32) L* 08/29/17 13:25 BUN 74 mg/dL (7-18) H 08/29/17 13:25 Creatinine 2.89 mg/dL (0.70-1.30) H 08/29/17 13:25 Est GFR (MDRD) Af Amer 28 (>60) L 08/29/17 13:25 Est GFR (MDRD) Non-Af 23 (>60) L 08/29/17 13:25 Glucose 107 mg/dL (65-99) H 08/29/17 13:25 Calcium 8.0 mg/dL (8.5-10.1) L 08/29/17 13:25 Corrected Calcium 8.3 mg/dL (8.5-10.1) L 08/29/17 05:22 Magnesium 1.9 mg/dL (1.7-2.9) 08/28/17 05:20 Total Bilirubin 0.50 mg/dL (0.2-1.0) 08/29/17 05:22 AST 18 Units/L (15-37) 08/29/17 05:22 ALT 32 Units/L (12-78) 08/29/17 05:22 Alkaline Phosphatase 55 Units/L (46-116) 08/29/17 05:22 C-Reactive Protein 38.00 mg/L (0-3.0) H 08/29/17 13:25 Total Protein 7.4 g/dL (6.4-8.2) 08/29/17 05:22 Albumin 3.3 g/dL (3.4-5.0) L 08/29/17 05:22 Globulin 4.1 g/dL (2.5-4.5) 08/29/17 05:22 Albumin/Globulin Ratio 0.8 Ratio (1.1-2.1) L 08/29/17 05:22 Amylase 55 Units/L (25-115) 08/27/17 01:00 Lipase 171 Units/L (73-393) 08/27/17 01:00 Specimen Type Clean catch urine 08/27/17 04:08 Urine Color Yellow (YELLOW) 08/27/17 04:08 Urine Appearance Cloudy (CLEAR) 08/27/17 04:08 Urine pH 5.0 (5.0 - 8.0) 08/27/17 04:08 Ur Specific [place] 1.030 (1.000-1.030) 08/27/17 04:08 Urine Protein 3+ (NEGATIVE) 08/27/17 04:08 Urine Glucose (UA) Negative (NEGATIVE) 08/27/17 04:08 Urine Ketones Negative (NEGATIVE) 08/27/17 04:08 Urine Occult Blood 1+ (NEGATIVE) 08/27/17 04:08 Urine Nitrite Negative (NEGATIVE) 08/27/17 04:08 Urine Bilirubin 2+ (NEGATIVE) 08/27/17 04:08 Urine Urobilinogen Normal (NORMAL) 08/27/17 04:08 Ur Leukocyte Esterase 1+ (NEGATIVE) 08/27/17 04:08 Urine RBC 5-10 /HPF (NONE SEEN) 08/27/17 04:08 Urine WBC 5-10 /HPF (NONE SEEN) 08/27/17 04:08 Ur Squamous Epith Cells Few /HPF (NEGATIVE) 08/27/17 04:08 Calcium Oxalate Crystal Few /HPF (NEGATIVE) 08/27/17 04:08 Urine Bacteria 2+ /HPF (NEGATIVE) 08/27/17 04:08 Hyaline Casts Moderate /LPF (NEGATIVE) 08/27/17 04:08 Granular Casts Few /LPF (NEGATIVE) 08/27/17 04:08 Ur Culture Indicated? Yes/culture set up 08/27/17 04:08 Stool Description Watery, green, 180gr 08/27/17 09:55 Stl Occult Blood (IFOB) Negative (NEGATIVE) 08/27/17 09:55 Stool for White Cells Positive (NEGATIVE) A 08/27/17 09:55 Stl C. diff Tox B Gene Negative (NEGATIVE) 08/27/17 09:55 Stl C. diff 027-NAP1-BI Negative (NEGATIVE) 08/27/17 09:55 - Plan (1) Gastroenteritis Status: Acute Plan: CONTINUE IV HYDRATION, ELECTROLYTE REPLACEMENT. CONSULT IRFAN. POTASSIUM REPLACEMENT, STOOL CULTURES COLLECTED ON ADMISSION. ENCOURAGE ORAL HYDRATION, PAIN AND NAUSEA CONTROL (2) Acute renal failure (ARF) Status: Acute Qualifiers: Acute renal failure type: unspecified Qualified Code(s): N17.9 - Acute kidney failure, unspecified Plan: REPEAT BMP THIS AFTERNOON, GENTLY HYDRATION. I & OS (3) Crohn's disease Status: Acute (4) Dehydration, moderate Status: Acute (5) Diverticulosis of colon Status: Acute (6) Essential hypertension Status: Active (7) Generalized anxiety disorder Status: Active
[2017-08-29] MEDS ORDERED: PHARMACY CONSULT - DOSE _____ XX SCH (17:00)
[2017-08-29] MEDS: FLAGYL IV SCH (21:30)
[2017-08-29] MEDS: CIPRO IV 200 MG PREMIX* 200 MG/100 ML BAG IV SCH (21:33)
[2017-08-30] MEDS: NS + KCL 20 MEQ/L 1,000 ML IV SCH ×2 (05:21→14:42)
[2017-08-30] MEDS: FLAGYL IV SCH ×3 (05:38→22:03)
[2017-08-30 06:33] LABS: BASOPHILS % (AUTO) 0.1 % (0.2-1.0); EOSINOPHILS % (AUTO) 0.1 % (0.9-2.9); HEMATOCRIT 46.9 % (42.0-54.0); HEMOGLOBIN 16.6 g/dL (13.5-18.0); LYMPHOCYTES # (AUTO) 0.6 X10^3/uL (1.3-2.9); LYMPHOCYTES % (AUTO) 6.1 % (21.0-51.0); MEAN CORPUSCULAR HEMOGLOBIN 34.6 pg (27.0-34.0); MEAN CORPUSCULAR HGB CONC 35.3 g/dL (33.0-35.0); MEAN CORPUSCULAR VOLUME 98.3 fL (80.0-100.0); MEAN PLATELET VOLUME 8.3 fL (7.4-11.0); MONOCYTES # (AUTO) 2.3 x10^3/uL (0.3-0.8); NEUTROPHILS # (AUTO) 7.1 x10^3/uL (2.2-4.8); NEUTROPHILS % (AUTO) 70.7 % (42.0-75.0); PLATELET COUNT 261 X10^3/uL (150.0-450.0); RED BLOOD COUNT 4.78 X10^6/uL (4.7-6.0); RED CELL DISTRIBUTION WIDTH 13.9 % (11.6-16.5); WHITE BLOOD COUNT 10.1 X10^3/uL (3.6-10.0)
[2017-08-30 06:37] LABS: CALCIUM 7.9 mg/dL (8.5-10.1); CREATININE 2.38 mg/dL (0.70-1.30)
[2017-08-30 06:38] LABS: CARBON DIOXIDE 9.2 mmol/L (21-32)
[2017-08-30 06:56] LABS: BAND NEUTROPHILS % 8 % (0-10); PLATELET MORPHOLOGY COMMENT NORMAL (NORMAL)
[2017-08-30] MEDS: PEPCID 20 MG IV PREMIX* 20 MG/50 ML BAG IV SCH (09:01)
[2017-08-30] MEDS: ZESTRIL TAB 10 MG PO SCH (09:02)
[2017-08-30] MEDS: TENORMIN PO SCH (09:02)
[2017-08-30] MEDS: CARDIZEM CD 240 MG PO SCH (09:02)
[2017-08-30] MEDS: LIPITOR TAB 10 MG PO SCH (09:02)
[2017-08-30] MEDS: PATIENT'S HOME MEDICATION PO SCH ×2 (09:03→09:04)
[2017-08-30] MEDS: CIPRO IV 200 MG PREMIX* 200 MG/100 ML BAG IV SCH ×2 (10:00→22:03)
[2017-08-30 12:22] LABS: ALBUMIN 3.1 g/dL (3.4-5.0); COR CA(FOR HYPOALB) 8.6 mg/dL (8.5-10.1)
--- NOTE | 2017-08-30 13:42 | PCM.PROG ---
Progress Note - Progress Note for Day of Date: 08/30/17 - Subjective Subjective: 71 WM ADMITTED ON MONDAY WITH N/V/D AND ABDOMINAL PAIN, GE. PT HAS HX OF CROHNS DISEASE AND FOLLOWED BY DR GARCÍA, WE CONSULTED PER PT REQUEST. PT IS CURRENTLY ON FLAGYL AND CIPRO. PT STATES HE HAS IMPROVED NAUSEA AND NO VOMITING, PT ASKING TO ADVANCE DIET. PT CONTINUES WITH PERFUSE DIARRHEA, GREEN IN COLOR. PT HAS IMPROVING RENAL FUNCTION WITH IMPROVING HYDRATION, REPORTS GOOD URINE OUTPT - Past Medical Family Social History Past Med/Fam/Surg Hx: No changes since H&P Allergies: Allergies lorazepam Allergy (Verified 08/27/17 00:23) Sulfa (Sulfonamide Antibiotics) [SULFA] Allergy (Verified 08/27/17 00:23) - Review of Systems ROS: No change since H&P - Vital Signs and I&O's Vital Signs: Temperature 98.3 F Pulse Rate [Left Brachial] 60 Pulse Rate [Left Radial] 61 Pulse Rate [Radial] 66 Pulse Rate 82 Respiratory Rate 20 Blood Pressure [Left Arm] 135/65 Blood Pressure [Right Arm] 162/91 Blood Pressure 103/57 O2 Sat by Pulse Oximetry 97 Intake and Output: Intake & Output 08/28/17 08/29/17 08/30/17 08/31/17 11:59 11:59 11:59 11:59 Intake Total 4432 3370 2480 Output Total 870 Balance 4432 3370 1610 - Physical Exam Oriented: Normal Eyes: Normal Ear: Normal Nose: Normal Throat: Normal Respiratory: Normal Cardiovascular: Normal : Normal Auscultation: Bowel Sounds: Normal Tenderness: RUQ, RLQ Skin: Normal Musculoskeletal: Normal Psychiatric: Normal Mood Description: Calm Affect: Normal Speech Pattern: Clear, Appropriate - Laboratory and Diagnostics Result Diagrams: 08/30/17 05:11 08/30/17 05:11 Labs: 08/27/17 09:55 Stool Stool Culture - Final 08/27/17 09:55 Stool - Final 08/27/17 04:08 Urine,Clean Catch Urine Culture - Final Laboratory WBC 10.1 X10^3/uL (3.6-10.0) H 08/30/17 05:11 RBC 4.78 X10^6/uL (4.7-6.0) 08/30/17 05:11 Hgb 16.6 g/dL (13.5-18.0) 08/30/17 05:11 Hct 46.9 % (42.0-54.0) 08/30/17 05:11 MCV 98.3 fL (80.0-100.0) 08/30/17 05:11 MCH 34.6 pg (27.0-34.0) H 08/30/17 05:11 MCHC 35.3 g/dL (33.0-35.0) H 08/30/17 05:11 RDW 13.9 % (11.6-16.5) 08/30/17 05:11 Plt Count 261 X10^3/uL (150.0-450.0) 08/30/17 05:11 Plt Count Comment Adequate (ADEQUATE) 08/30/17 05:11 MPV 8.3 fL (7.4-11.0) 08/30/17 05:11 Neut % (Auto) 70.7 % (42.0-75.0) 08/30/17 05:11 Lymph % (Auto) 6.1 % (21.0-51.0) L 08/30/17 05:11 [place] % (Auto) 23.0 % (0.0-13.0) H 08/30/17 05:11 Eos % (Auto) 0.1 % (0.9-2.9) L 08/30/17 05:11 Baso % (Auto) 0.1 % (0.2-1.0) L 08/30/17 05:11 Neut # (Auto) 7.1 x10^3/uL (2.2-4.8) H 08/30/17 05:11 Lymph # (Auto) 0.6 X10^3/uL (1.3-2.9) L 08/30/17 05:11 [place] # (Auto) 2.3 x10^3/uL (0.3-0.8) H 08/30/17 05:11 Eos # (Auto) 0.0 x10^3/uL (0.0-0.2) 08/30/17 05:11 Baso # (Auto) 0.0 X10^3/uL (0.0-0.1) 08/30/17 05:11 Absolute Nucleated RBC 0.0 /100WBC 08/30/17 05:11 Total Counted 100 08/30/17 05:11 Neutrophils % (Manual) 80 % (39-76) H 08/30/17 05:11 Band Neutrophils % 8 % (0-10) 08/30/17 05:11 Lymphocytes % (Manual) 5 % (13-43) L 08/30/17 05:11 Monocytes % (Manual) 7 % (4-9) 08/30/17 05:11 Plt Morphology Comment Normal (NORMAL) 08/30/17 05:11 RBC Morphology Normal (NORMAL) 08/30/17 05:11 ESR 15 MM/HOUR (0-15) 08/29/17 13:25 Sodium 133 mmol/L (136-145) L 08/30/17 05:11 Corrected Sodium 133 mmol/L (136-145) L 08/30/17 05:11 Potassium 4.0 mmol/L (3.5-5.1) 08/30/17 05:11 Chloride 106 mmol/L (98-107) 08/30/17 05:11 Carbon Dioxide 9.2 mmol/L (21-32) L* 08/30/17 05:11 BUN 60 mg/dL (7-18) H 08/30/17 05:11 Creatinine 2.38 mg/dL (0.70-1.30) H 08/30/17 05:11 Est GFR (MDRD) Af Amer 35 (>60) L 08/30/17 05:11 Est GFR (MDRD) Non-Af 29 (>60) L 08/30/17 05:11 Glucose 116 mg/dL (65-99) H 08/30/17 05:11 Calcium 7.9 mg/dL (8.5-10.1) L 08/30/17 05:11 Corrected Calcium 8.6 mg/dL (8.5-10.1) 08/30/17 05:11 Magnesium 1.9 mg/dL (1.7-2.9) 08/28/17 05:20 Total Bilirubin 0.40 mg/dL (0.2-1.0) 08/30/17 05:11 AST 23 Units/L (15-37) 08/30/17 05:11 ALT 30 Units/L (12-78) 08/30/17 05:11 Alkaline Phosphatase 60 Units/L (46-116) 08/30/17 05:11 C-Reactive Protein 38.00 mg/L (0-3.0) H 08/29/17 13:25 Total Protein 7.0 g/dL (6.4-8.2) 08/30/17 05:11 Albumin 3.1 g/dL (3.4-5.0) L 08/30/17 05:11 Globulin 3.9 g/dL (2.5-4.5) 08/30/17 05:11 Albumin/Globulin Ratio 0.8 Ratio (1.1-2.1) L 08/30/17 05:11 Amylase 55 Units/L (25-115) 08/27/17 01:00 Lipase 171 Units/L (73-393) 08/27/17 01:00 Specimen Type Clean catch urine 08/27/17 04:08 Urine Color Yellow (YELLOW) 08/27/17 04:08 Urine Appearance Cloudy (CLEAR) 08/27/17 04:08 Urine pH 5.0 (5.0 - 8.0) 08/27/17 04:08 Ur Specific [place] 1.030 (1.000-1.030) 08/27/17 04:08 Urine Protein 3+ (NEGATIVE) 08/27/17 04:08 Urine Glucose (UA) Negative (NEGATIVE) 08/27/17 04:08 Urine Ketones Negative (NEGATIVE) 08/27/17 04:08 Urine Occult Blood 1+ (NEGATIVE) 08/27/17 04:08 Urine Nitrite Negative (NEGATIVE) 08/27/17 04:08 Urine Bilirubin 2+ (NEGATIVE) 08/27/17 04:08 Urine Urobilinogen Normal (NORMAL) 08/27/17 04:08 Ur Leukocyte Esterase 1+ (NEGATIVE) 08/27/17 04:08 Urine RBC 5-10 /HPF (NONE SEEN) 08/27/17 04:08 Urine WBC 5-10 /HPF (NONE SEEN) 08/27/17 04:08 Ur Squamous Epith Cells Few /HPF (NEGATIVE) 08/27/17 04:08 Calcium Oxalate Crystal Few /HPF (NEGATIVE) 08/27/17 04:08 Urine Bacteria 2+ /HPF (NEGATIVE) 08/27/17 04:08 Hyaline Casts Moderate /LPF (NEGATIVE) 08/27/17 04:08 Granular Casts Few /LPF (NEGATIVE) 08/27/17 04:08 Ur Culture Indicated? Yes/culture set up 08/27/17 04:08 Stool Description Watery, green, 180gr 08/27/17 09:55 Stl Occult Blood (IFOB) Negative (NEGATIVE) 08/27/17 09:55 Stool for White Cells Positive (NEGATIVE) A 08/27/17 09:55 Stl C. diff Tox B Gene Negative (NEGATIVE) 08/27/17 09:55 Stl C. diff 027-NAP1-BI Negative (NEGATIVE) 08/27/17 09:55 S. pyogenes (TEM-PCR) Not detected (NOT DETECT) 08/29/17 18:27 - Plan (1) Gastroenteritis Status: Acute Plan: CONTINUE IV HYDRATION, ELECTROLYTE REPLACEMENT. CONSULT IRFAN. POTASSIUM REPLACEMENT, STOOL CULTURES COLLECTED ON ADMISSION. ENCOURAGE ORAL HYDRATION, PAIN AND NAUSEA CONTROL (2) Acute renal failure (ARF) Status: Acute Qualifiers: Acute renal failure type: unspecified Qualified Code(s): N17.9 - Acute kidney failure, unspecified Plan: REPEAT CMP Q AM, GENTLE HYDRATION. I & OS (3) Crohn's disease Status: Acute Plan: CONSULT IRFAN (4) Dehydration, moderate Status: Acute (5) Diverticulosis of colon Status: Acute (6) Essential hypertension Status: Active (7) Generalized anxiety disorder Status: Active
--- NOTE | 2017-08-30 18:08 | RAD ---
HISTORY: Small bowel obstruction, abdominal pain Study: Abdomen series with PA chest Comparison: 08/29/2017. Technique: KUB and upright views the abdomen are provided as well as a PA chest. Findings: There are changes of coronary artery bypass surgery with median sternotomy sutures and metallic marke rs and sutures indicating coronary artery bypass grafts. The trachea is midline. Heart size is normal . Lungs and pleural spaces are clear. Osseous structures are intact. There is even further gaseous distention of small bowel loops compared to prior studies. Frontal air- fluid levels are present. Some air is still present within the colon. Findings are again compatible w ith a partial small bowel obstruction. There surgical clips from cholecystectomy. No free intraperito nai air or fluid is seen. A 5 mm right-sided kidney stone is again seen. No stone is seen on the lef t. IMPRESSION: Continued evidence of partial small bowel obstruction. 5 mm right-sided kidney stone. Status post CABG. No acute disease. Reported By:
[2017-08-31] MEDS: PATIENT'S HOME MEDICATION PO SCH ×4 (00:03→21:23)
[2017-08-31] MEDS: NS + KCL 20 MEQ/L 1,000 ML IV SCH ×2 (02:39→19:00)
[2017-08-31] MEDS: FLAGYL IV SCH ×3 (05:39→23:54)
[2017-08-31 05:49] LABS: BASOPHILS % (AUTO) 0.2 % (0.2-1.0); EOSINOPHILS % (AUTO) 0.2 % (0.9-2.9); HEMATOCRIT 43.3 % (42.0-54.0); HEMOGLOBIN 15.4 g/dL (13.5-18.0); LYMPHOCYTES # (AUTO) 0.7 X10^3/uL (1.3-2.9); LYMPHOCYTES % (AUTO) 9.1 % (21.0-51.0); MEAN CORPUSCULAR HEMOGLOBIN 34.7 pg (27.0-34.0); MEAN CORPUSCULAR HGB CONC 35.6 g/dL (33.0-35.0); MEAN CORPUSCULAR VOLUME 97.4 fL (80.0-100.0); MEAN PLATELET VOLUME 8.4 fL (7.4-11.0); MONOCYTES # (AUTO) 1.5 x10^3/uL (0.3-0.8); MONOCYTES % (AUTO) 19.6 % (0.0-13.0); NEUTROPHILS # (AUTO) 5.4 x10^3/uL (2.2-4.8); NEUTROPHILS % (AUTO) 70.9 % (42.0-75.0); PLATELET COUNT 219 X10^3/uL (150.0-450.0); RED BLOOD COUNT 4.44 X10^6/uL (4.7-6.0); RED CELL DISTRIBUTION WIDTH 13.9 % (11.6-16.5); WHITE BLOOD COUNT 7.6 X10^3/uL (3.6-10.0)
[2017-08-31 06:06] LABS: ALANINE AMINOTRANSFERASE 27 Units/L (12-78); ALBUMIN 2.8 g/dL (3.4-5.0); ALKALINE PHOSPHATASE 54 Units/L (46-116); ASPARTATE AMINO TRANSFERASE 21 Units/L (15-37); BLOOD UREA NITROGEN 43 mg/dL (7-18); CALCIUM 7.6 mg/dL (8.5-10.1); CHLORIDE 112 mmol/L (98-107); COR CA(FOR HYPOALB) 8.6 mg/dL (8.5-10.1); CREATININE 1.86 mg/dL (0.70-1.30); SODIUM 138 mmol/L (136-145); TOTAL PROTEIN 6.2 g/dL (6.4-8.2); eGFR BLACK RACES 46 (>60); eGFR NON BLACK RACES 38 (>60)
[2017-08-31 06:11] LABS: CARBON DIOXIDE 9.1 mmol/L (21-32)
[2017-08-31] MEDS: CIPRO IV 200 MG PREMIX* 200 MG/100 ML BAG IV SCH ×2 (08:37→21:20)
[2017-08-31] MEDS: PEPCID 20 MG IV PREMIX* 20 MG/50 ML BAG IV SCH ×2 (08:37→22:41)
[2017-08-31] MEDS: CARDIZEM CD 240 MG PO SCH (08:37)
[2017-08-31] MEDS: ZESTRIL TAB 10 MG PO SCH (08:37)
[2017-08-31] MEDS: LIPITOR TAB 10 MG PO SCH (08:37)
[2017-08-31] MEDS: TENORMIN PO SCH (08:37)
[2017-08-31] MEDS: XANAX PO PRN (08:57)
[2017-08-31] MEDS ORDERED: NS 1000 ML 1,000 ML with POTASSIUM CHLORIDE INJ 30 MEQ VIAL 30 MEQ IV SCH ×2 (11:00)
--- NOTE | 2017-08-31 14:06 | PCM.PROG ---
Progress Note - Progress Note for Day of Date: 08/31/17 - Subjective Subjective: 71 WM ADMITTED ON MONDAY WITH N/V/D AND ABDOMINAL PAIN, GE. PT HAS HX OF CROHNS DISEASE AND FOLLOWED BY DR GARCÍA, WE CONSULTED PER PT REQUEST. PT IS CURRENTLY ON FLAGYL AND CIPRO. PT STATES HE HAS IMPROVED NAUSEA AND NO VOMITING, PT ASKING TO ADVANCE DIET. PT CONTINUES WITH PERFUSE DIARRHEA, GREEN IN COLOR. PT HAS IMPROVING RENAL FUNCTION WITH IMPROVING HYDRATION, REPORTS GOOD URINE OUTPT. PT ABD SERIES RESULTS POSSIBLE PARTIAL SBO, PT HAS NO INTRACTABLE PAIN OR N/V. WILL CONTINUE WITH CURRENT REGIMEN, ENCOURAGE HYDRATION - Past Medical Family Social History Past Med/Fam/Surg Hx: No changes since H&P Allergies: Allergies lorazepam Allergy (Verified 08/27/17 00:23) Sulfa (Sulfonamide Antibiotics) [SULFA] Allergy (Verified 08/27/17 00:23) - Review of Systems ROS: No change since H&P - Vital Signs and I&O's Vital Signs: Temperature 97.7 F Pulse Rate [Left Brachial] 57 Pulse Rate [Left Radial] 61 Pulse Rate [Radial] 66 Pulse Rate 82 Respiratory Rate 20 Blood Pressure [Left Arm] 153/72 Blood Pressure [Right Arm] 162/91 Blood Pressure 103/57 O2 Sat by Pulse Oximetry 96 Intake and Output: Intake & Output 08/29/17 08/30/17 08/31/17 09/01/17 11:59 11:59 11:59 11:59 Intake Total 3370 2480 2560 Output Total 870 Balance 3370 1610 2560 - Physical Exam Oriented: Normal Eyes: Normal Ear: Normal Nose: Normal Throat: Normal Respiratory: Normal Cardiovascular: Normal : Normal Auscultation: Bowel Sounds: Increased Tenderness: RUQ Skin: Normal Musculoskeletal: Normal Psychiatric: Normal Mood Description: Calm Affect: Normal Speech Pattern: Clear, Appropriate - Laboratory and Diagnostics Result Diagrams: 08/31/17 04:57 08/31/17 04:57 Labs: 08/27/17 09:55 Stool Stool Culture - Final 08/27/17 09:55 Stool - Final 08/27/17 04:08 Urine,Clean Catch Urine Culture - Final Laboratory WBC 7.6 X10^3/uL (3.6-10.0) 08/31/17 04:57 RBC 4.44 X10^6/uL (4.7-6.0) L 08/31/17 04:57 Hgb 15.4 g/dL (13.5-18.0) 08/31/17 04:57 Hct 43.3 % (42.0-54.0) 08/31/17 04:57 MCV 97.4 fL (80.0-100.0) 08/31/17 04:57 MCH 34.7 pg (27.0-34.0) H 08/31/17 04:57 MCHC 35.6 g/dL (33.0-35.0) H 08/31/17 04:57 RDW 13.9 % (11.6-16.5) 08/31/17 04:57 Plt Count 219 X10^3/uL (150.0-450.0) 08/31/17 04:57 Plt Count Comment Adequate (ADEQUATE) 08/30/17 05:11 MPV 8.4 fL (7.4-11.0) 08/31/17 04:57 Neut % (Auto) 70.9 % (42.0-75.0) 08/31/17 04:57 Lymph % (Auto) 9.1 % (21.0-51.0) L 08/31/17 04:57 [place] % (Auto) 19.6 % (0.0-13.0) H 08/31/17 04:57 Eos % (Auto) 0.2 % (0.9-2.9) L 08/31/17 04:57 Baso % (Auto) 0.2 % (0.2-1.0) 08/31/17 04:57 Neut # (Auto) 5.4 x10^3/uL (2.2-4.8) H 08/31/17 04:57 Lymph # (Auto) 0.7 X10^3/uL (1.3-2.9) L 08/31/17 04:57 [place] # (Auto) 1.5 x10^3/uL (0.3-0.8) H 08/31/17 04:57 Eos # (Auto) 0.0 x10^3/uL (0.0-0.2) 08/31/17 04:57 Baso # (Auto) 0.0 X10^3/uL (0.0-0.1) 08/31/17 04:57 Absolute Nucleated RBC 0.0 /100WBC 08/31/17 04:57 Total Counted 100 08/30/17 05:11 Neutrophils % (Manual) 80 % (39-76) H 08/30/17 05:11 Band Neutrophils % 8 % (0-10) 08/30/17 05:11 Lymphocytes % (Manual) 5 % (13-43) L 08/30/17 05:11 Monocytes % (Manual) 7 % (4-9) 08/30/17 05:11 Plt Morphology Comment Normal (NORMAL) 08/30/17 05:11 RBC Morphology Normal (NORMAL) 08/30/17 05:11 ESR 15 MM/HOUR (0-15) 08/29/17 13:25 Sodium 138 mmol/L (136-145) 08/31/17 04:57 Corrected Sodium TNP 08/31/17 04:57 Potassium 3.2 mmol/L (3.5-5.1) L 08/31/17 04:57 Chloride 112 mmol/L (98-107) H 08/31/17 04:57 Carbon Dioxide 9.1 mmol/L (21-32) L* 08/31/17 04:57 BUN 43 mg/dL (7-18) H 08/31/17 04:57 Creatinine 1.86 mg/dL (0.70-1.30) H 08/31/17 04:57 Est GFR (MDRD) Af Amer 46 (>60) L 08/31/17 04:57 Est GFR (MDRD) Non-Af 38 (>60) L 08/31/17 04:57 Glucose 110 mg/dL (65-99) H 08/31/17 04:57 Calcium 7.6 mg/dL (8.5-10.1) L 08/31/17 04:57 Corrected Calcium 8.6 mg/dL (8.5-10.1) 08/31/17 04:57 Magnesium 1.9 mg/dL (1.7-2.9) 08/28/17 05:20 Total Bilirubin 0.50 mg/dL (0.2-1.0) 08/31/17 04:57 AST 21 Units/L (15-37) 08/31/17 04:57 ALT 27 Units/L (12-78) 08/31/17 04:57 Alkaline Phosphatase 54 Units/L (46-116) 08/31/17 04:57 C-Reactive Protein 38.00 mg/L (0-3.0) H 08/29/17 13:25 Total Protein 6.2 g/dL (6.4-8.2) L 08/31/17 04:57 Albumin 2.8 g/dL (3.4-5.0) L 08/31/17 04:57 Globulin 3.4 g/dL (2.5-4.5) 08/31/17 04:57 Albumin/Globulin Ratio 0.8 Ratio (1.1-2.1) L 08/31/17 04:57 Amylase 55 Units/L (25-115) 08/27/17 01:00 Lipase 171 Units/L (73-393) 08/27/17 01:00 Specimen Type Clean catch urine 08/27/17 04:08 Urine Color Yellow (YELLOW) 08/27/17 04:08 Urine Appearance Cloudy (CLEAR) 08/27/17 04:08 Urine pH 5.0 (5.0 - 8.0) 08/27/17 04:08 Ur Specific [place] 1.030 (1.000-1.030) 08/27/17 04:08 Urine Protein 3+ (NEGATIVE) 08/27/17 04:08 Urine Glucose (UA) Negative (NEGATIVE) 08/27/17 04:08 Urine Ketones Negative (NEGATIVE) 08/27/17 04:08 Urine Occult Blood 1+ (NEGATIVE) 08/27/17 04:08 Urine Nitrite Negative (NEGATIVE) 08/27/17 04:08 Urine Bilirubin 2+ (NEGATIVE) 08/27/17 04:08 Urine Urobilinogen Normal (NORMAL) 08/27/17 04:08 Ur Leukocyte Esterase 1+ (NEGATIVE) 08/27/17 04:08 Urine RBC 5-10 /HPF (NONE SEEN) 08/27/17 04:08 Urine WBC 5-10 /HPF (NONE SEEN) 08/27/17 04:08 Ur Squamous Epith Cells Few /HPF (NEGATIVE) 08/27/17 04:08 Calcium Oxalate Crystal Few /HPF (NEGATIVE) 08/27/17 04:08 Urine Bacteria 2+ /HPF (NEGATIVE) 08/27/17 04:08 Hyaline Casts Moderate /LPF (NEGATIVE) 08/27/17 04:08 Granular Casts Few /LPF (NEGATIVE) 08/27/17 04:08 Ur Culture Indicated? Yes/culture set up 08/27/17 04:08 Stool Description Watery, green, 180gr 08/27/17 09:55 Stl Occult Blood (IFOB) Negative (NEGATIVE) 08/27/17 09:55 Stool for White Cells Positive (NEGATIVE) A 08/27/17 09:55 Stl C. diff Tox B Gene Negative (NEGATIVE) 08/27/17 09:55 Stl C. diff 027-NAP1-BI Negative (NEGATIVE) 08/27/17 09:55 S. pyogenes (TEM-PCR) Not detected (NOT DETECT) 08/29/17 18:27 - Plan (1) Gastroenteritis Status: Acute Plan: CONTINUE IV HYDRATION, ELECTROLYTE REPLACEMENT. CONSULT IRFAN. POTASSIUM REPLACEMENT, STOOL CULTURES COLLECTED ON ADMISSION. ENCOURAGE ORAL HYDRATION, PAIN AND NAUSEA CONTROL (2) Acute renal failure (ARF) Status: Acute Qualifiers: Acute renal failure type: unspecified Qualified Code(s): N17.9 - Acute kidney failure, unspecified Plan: REPEAT CMP Q AM, GENTLE HYDRATION. I & OS (3) Crohn's disease Status: Acute Plan: CONSULT IRFAN (4) Dehydration, moderate Status: Acute (5) Diverticulosis of colon Status: Acute (6) Essential hypertension Status: Active (7) Generalized anxiety disorder Status: Active
[2017-09-01] MEDS: FLAGYL IV SCH (06:15)
[2017-09-01] MEDS: NS + KCL 20 MEQ/L 1,000 ML IV SCH (06:22)
[2017-09-01 06:40] LABS: BASOPHILS % (AUTO) 0.3 % (0.2-1.0); EOSINOPHILS % (AUTO) 0.7 % (0.9-2.9); HEMATOCRIT 37.8 % (42.0-54.0); HEMOGLOBIN 13.5 g/dL (13.5-18.0); LYMPHOCYTES # (AUTO) 0.9 X10^3/uL (1.3-2.9); LYMPHOCYTES % (AUTO) 12.2 % (21.0-51.0); MEAN CORPUSCULAR HEMOGLOBIN 34.6 pg (27.0-34.0); MEAN CORPUSCULAR HGB CONC 35.7 g/dL (33.0-35.0); MEAN CORPUSCULAR VOLUME 96.9 fL (80.0-100.0); MEAN PLATELET VOLUME 8.2 fL (7.4-11.0); MONOCYTES % (AUTO) 14.9 % (0.0-13.0); NEUTROPHILS % (AUTO) 71.9 % (42.0-75.0); PLATELET COUNT 229 X10^3/uL (150.0-450.0); RED CELL DISTRIBUTION WIDTH 13.9 % (11.6-16.5)
--- NOTE | 2017-09-01 06:52 | RAD ---
HISTORY: Abdominal pain Study: Chest AP portable Comparison: 08/28/2017 Findings: The patient is status post median sternotomy and CABG. The heart is within normal limits in size. The jazmyne are normal. The lung montoya are clear. No pleural effusions are identified. The bony thorax is unremarkable. IMPRESSION: Lungs clear Reported By:
[2017-09-01 07:02] LABS: ALBUMIN 2.5 g/dL (3.4-5.0); CALCIUM 7.3 mg/dL (8.5-10.1); COR CA(FOR HYPOALB) 8.5 mg/dL (8.5-10.1); CREATININE 1.49 mg/dL (0.70-1.30); TOTAL PROTEIN 5.5 g/dL (6.4-8.2)
[2017-09-01 07:13] LABS: CARBON DIOXIDE 11.9 mmol/L (21-32)
[2017-09-01] MEDS: CIPRO IV 200 MG PREMIX* 200 MG/100 ML BAG IV SCH (08:41)
[2017-09-01] MEDS: LIPITOR TAB 10 MG PO SCH (08:41)
[2017-09-01] MEDS: TENORMIN PO SCH (08:41)
[2017-09-01] MEDS: ZESTRIL TAB 10 MG PO SCH (08:41)
[2017-09-01] MEDS: PEPCID 20 MG IV PREMIX* 20 MG/50 ML BAG IV SCH (08:41)
[2017-09-01] MEDS: CARDIZEM CD 240 MG PO SCH (08:42)
[2017-09-01] MEDS: PATIENT'S HOME MEDICATION PO SCH ×2 (08:51)
[2017-09-01] MEDS ORDERED: QUESTRAN PO SCH (09:45)
[2017-09-01 12:48] VITALS: BP 175/84
== END 2017-09-01 13:20 | disposition home or self-care (01) | DRG 683 ==
LOC: ER 23:01 → MED/SURG 08-27 02:51
PROVIDERS: ADMIT Internal Medicine; ATTEND Internal Medicine
DX: N17.8 Other acute kidney failure (principal); K50.90 Crohn's disease, unspecified, without complications; K52.89 Other specified noninfective gastroenteritis and colitis; R11.2 Nausea with vomiting, unspecified; R19.7 Diarrhea, unspecified; E86.0 Dehydration; E11.65 Type 2 diabetes mellitus with hyperglycemia; N20.0 Calculus of kidney; R07.89 Other chest pain; I10 Essential (primary) hypertension; F41.8 Other specified anxiety disorders; K21.9 Gastro-esophageal reflux disease without esophagitis; I25.10 Atherosclerotic heart disease of native coronary artery without angina pectoris; E27.49 Other adrenocortical insufficiency; E87.1 Hypo-osmolality and hyponatremia
CPT/HCPCS: 36415; 71045; 71046; 74022; 74176; 80048; 80053; 81001; 82150; 82274; 83630; 83690; 83735; 84132; 85025; 85652; 86140; 87045; 87086; 87427; 87449; 87493; 87651; 96365; 96367; 96374; 96375; 99221; 99283; 99284; A4216; A4222; S0028; S0030; J0744; J2354; J2405; J2550; J2765; J3480